=== PATIENT | female | born 1995 ===

== ENCOUNTER 2017-04-20 06:20 | Emergency (ER) | payer MEDICAID ==
[2017-04-20 06:20] VITALS: BMI 36.2
[2017-04-20 06:30] VITALS: RESP 16
--- NOTE | 2017-04-20 07:33 | C.PDOC ---
History Of Present Illness Patient c/o right back acne that is painful for 2 days. Patient sts pain is worse with palpation of "pimples" and even going down to the right leg. Patient denies fever, leg numbness/tingling, difficulty ambulating. Time Seen by Provider: 04/20/17 07:24 Chief Complaint (Nursing): Back Pain History Per: Patient History/Exam Limitations: no limitations Onset/Duration Of Symptoms: Days (2) Quality Of Discomfort: Aching Severity: Moderate Pain Scale Rating Of: 5 Previous Symptoms: Back Pain Associated Symptoms: denies: Incontinence, New Weakness, New Numbness Exacerbating Factor(s): Other (palpaation) Recent travel outside of the [place]: No Past Medical History Reviewed: Historical Data, Nursing Documentation, Vital Signs Vital Signs: Last Vital Signs Temp 98.9 F 04/20/17 08:02 Pulse 97 H 04/20/17 08:02 Resp 16 04/20/17 08:02 BP 109/67 04/20/17 08:02 Pulse Ox 99 04/20/17 08:02 - Medical History PMH: No Chronic Diseases, Fractures (ANKLE) Denies: Chronic Kidney Disease - [facility] Procedures ESOPHAGOGASTRODUODENOSCOPY [EGD] W/CLOSED BIOPSY (01/04/15) Family History: States: No Known Family Hx - Social History Hx Tobacco Use: No Hx Alcohol Use: No Hx Substance Use: No - Immunization History Hx Tetanus Toxoid Vaccination: No Hx Influenza Vaccination: No Hx Pneumococcal Vaccination: No Review Of Systems Except As Marked, All Systems Reviewed And Found Negative. Physical Exam - Physical Exam Appears: Well, Non-toxic, No Acute Distress Skin: Normal Color, Warm, Other (right mid and low back with inflamed acne, tender, no drainage, no fluctuance, no abscess, no open sores) Head: Atraumatic, Normacephalic Neck: Normal ROM Back: No Vertebral Tenderness, No Paraspinal Tenderness Extremity: Normal ROM Neurological/Psych: Oriented x3, Normal Speech, No Normal Motor, No Normal Sensation ED Course And Treatment O2 Sat by Pulse Oximetry: 98 Progress Note: Patient was tretaed with Doxy po. She was d/c home with PMD and [employer] f/u. Disposition - Disposition Disposition: HOME/ ROUTINE Disposition Time: 07:30 Condition: STABLE Additional Instructions: Follow up with your PMD/[employer] within 1-2 days. Return to ED if feel worse. Prescriptions: Clindamycin Phos/Benzoyl Perox [Benzaclin Gel 50G Pump] 1 appl TP BID #1 gel.w.pump Doxycycline Hyclate [Doryx] 100 mg PO BID #14 cap Instructions: Acne (ED) Forms: Work Excuse - Clinical Impression Clinical Impression: Acne
[2017-04-20 08:03] VITALS: BP 109/67; PULSE 97; TEMP 98.9
[2017-04-20 08:45] VITALS: O2SAT 98
== END 2017-04-20 08:06 | disposition home or self-care (01) ==
LOC: C.ER 06:20
DX: L70.9 Acne, unspecified (principal)